=== PATIENT | female | born 1990 | race Caucasian/White ===

== ENCOUNTER 2020-08-19 16:35 | Emergency (ER) | payer MEDICAID, SELFPAY ==
[2020-08-19 16:36] VITALS: BP 123/73; PULSE 82; RESP 17; TEMP 36.7; O2SAT 100; BMI 21.2
[2020-08-19 17:08] VITALS: BP 123/73; PULSE 82; RESP 17; TEMP 36.7; O2SAT 100; BMI 21.2
[2020-08-19 17:16] VITALS: BP 123/73; PULSE 82; RESP 17; TEMP 36.7; O2SAT 100
--- NOTE | 2020-08-19 17:29 | HMH.EDUTC ---
[facility] [place] Disposition Clinical Impression: Encounter for laboratory testing for COVID-19 virus, Pain Disposition: Home, Self-Care Condition on Discharge: Good Instructions: Scoliosis-Adult, Preventing the Spread of Coronavirus Discharge Instructions Additional Instructions: *Monitor Temp, Over the counter Motrin or Tylenol as directed/as needed Tylenol every 4 hours and Motrin every 6 hours (as long as your family doctor has told you that you can take it) for fever or pain. and straight to ER if unable to lower temp less than 101.0 after medication given *Warm salt water gargles may help to soothe the throat *Throat Lozenges *Warm fluids like tea with honey may help to soothe the throat *Sleep elevated *Humidifier/Vaporizer You was tested for today for COVID19 your test result should be back within the next 48-72 hours, call back to the [facility] to see if your test results are back and the result You was given a handout with instructions for Self Quarantine and Self isolation for while you wait on test results and what to do if they are positive Follow up IMMEDIATELY for new or worsening symptoms or no Noticeable improvement over the next 48-72 hours. 911 for difficulty breathing or swallowing You was tested for today for COVID19 your test result should be back within the next 48-72 hours, call back to the [facility] to see if your test results are back and the result You was given a handout with instructions for Self Quarantine and Self isolation for while you wait on test results and what to do if they are positive Prescriptions: Naproxen [Naproxen 500mg tab] 500 mg PO BID PRN #6 tab PRN Reason: Moderate Pain Prescription Printed Referrals: PCP,No [Primary Care Provider] - As needed Forms: Work/School Release Medical Decision Making - Daniel Inquiry Pt receiving controlled substance: No Daniel was queried for this patient: No Vital Signs: 08/19/20 16:36 08/19/20 17:08 08/19/20 17:16 Temperature 98.0 F 98.0 F 98.0 F Temperature Source Oral Oral Pulse Rate 82 Pulse Rate [Left Radial] 82 82 Respiratory Rate 17 17 17 Blood Pressure 123/73 Blood Pressure [Right Arm] 123/73 123/73 Blood Pressure Mean [Right Arm] 89 89 Blood Pressure Source [Right Arm] Automatic Cuff Automatic Cuff Blood Pressure Position [Right Arm] Sitting Sitting 02 Sat by Pulse Oximetry 100 100 Oxygen Delivery Method Room Air Room Air Orders (Tests/Meds): ORDERS Category Date Time Status Covid-19 Nasal PCR Sendout [facility] 08/19/20 17:13 Received [facility] [place] HPI - General Stated complaint: Leg, back, wrist, neck pain Time Seen by Provider: 08/19/20 17:29 Mode of Arrival: Ambulatory Source of Information: Significant Other Limitations: No Limitations Description of Symptoms (Recalled from Triage Doc. by RN): Generalized pain HEENT Symptoms (Recalled from RN notes): No Resp Symptoms (Recalled from RN notes): No Skin Symptoms (Recalled from RN notes): No MS Symptoms (Recalled from RN notes): Yes Functional Status (Recalled from RN notes): WNL - History of Present Illness Provider Complaint: Patient states that she has been feeling achy all over, body aches, chills and mother recently from COVID States that she was concerned and wanted to get tested States that she looks up at work alot and has a history of scoliosis States that she also wanted to see if there was anything she could get to help with the pain - Related Data Previous Rx's Medication Instructions Recorded Naproxen [Naproxen 500mg tab] 500 mg PO BID PRN #6 tab 08/19/20 Allergies Allergy/AdvReac Type Severity Reaction Status Date / Time No Known Allergies Allergy Unverified 11/14/17 15:12 - Worker's Comp Is this a Worker's Comp case?: No Is this an [facility] Worker's Comp?: No Is this a [place] Worker's Comp?: No [facility] History - Hepatitis A Screen Drug use history?: No High risk sexual behaviors?: No History of sexually transmitted inf
[2020-08-21 14:07] LABS: Covid-19 Nasal PCR Sendout Lex NOT DETECTED
== END 2020-08-19 17:45 | disposition home or self-care (01) ==
PROVIDERS: Emergency Provider Nurse Practitioner
DX: M54.6 Pain in thoracic spine (principal); M54.2 Cervicalgia; Z20.828 Contact with and (suspected) exposure to other viral communicable diseases; F17.210 Nicotine dependence, cigarettes, uncomplicated; M41.9 Scoliosis, unspecified
CPT/HCPCS: 99201; U0004

== ENCOUNTER 2025-08-13 22:44 | Emergency (ER) | payer MEDICAID, SELFPAY ==
[2025-08-13 22:46] VITALS: BP 101/69; PULSE 86; RESP 20; TEMP 36.4; O2SAT 99; BMI 24.3
--- NOTE | 2025-08-13 22:49 | ECG_ITS ---
APPROVED REPORT Exam: Resting ECG HR:81 bpm ECG Measurements Heart Rate 81 AXES AK 158 P 60 QRSd 81 QRS 64 QT 360 T 67 QTc 398 Conclusion SINUS RHYTHM NORMAL ECG UNCONFIRMED REPORT Electronically signed by : NOMAN WAGGONER, 08/14/2025 06:36:43
--- NOTE | 2025-08-13 23:11 | ED_ITS ---
Discharge Plan Disposition Patient Disposition: Home, Self-Care Prescriptions Prescriptions: No Action naproxen 500 MG tablet 500 mg PO BID PRN (Reason: Moderate Pain) Qty: 6 0RF Referrals Follow up/Referrals: Provider,Referral, MD [Primary Care Provider, Medical] - See instructions Activity Restrictions/Add. Instructions Additional Instructions/Restrictions: Recommend taking Tylenol and ibuprofen as needed for pain. Please follow-up with your primary care provider. Please return to the emergency department if you develop any new or worsening symptoms or become concerned for your health. Clinical Impressions Clinical Impression: Atypical chest pain Stand Alone Forms Stand Alone Forms: Work/School Release Print Language Print Language: Amharic Discharge ED Provider: Brady Ibrahim Adult HPI General Chief complaint: Chest Pain Stated complaint: chest pain Time Seen by Provider: 08/13/25 23:11 Mode of Arrival: Ambulatory Source of Information: Patient Description of Symptoms (Recalled from ER Triage Doc. by RN): Pt presents to the ED with c/o chest pain that started yesterday around 1400. Pt was seen at a hospital in [place], but states they just gave her ibuprofen and sent her home. Pt states she noticed worsening pain this morning when she woke up. Pt denies any radiating pain, or any other symptoms at this time. History of Present Illness HPI narrative: 34-year-old female with nonsignificant medical history presents for left-sided chest pain. She reports it has been going on since yesterday. She was seen at an outside hospital where she had an EKG and blood work drawn, which were reportedly negative. Her pain has continued/worsened so that is why she presents here today. She has no history of blood clots, is not on any contraceptive medications, no recent travel or leg swelling. She reports a mildly productive cough. Reports it radiates to the left shoulder. Denies any cardiac history. She reports a little bit of left-sided upper abdominal pain, denies significant midline or right sided pain, has had cholecystectomy. Related Data Previous Rx's ?Medication ?Instructions ?Recorded naproxen 500 mg tablet 500 mg PO BID PRN Moderate P ain #6 08/19/20 tabs Allergies Allergy/AdvReac Type Severity Reaction Status Date / Time No Known Allergies Allergy Unverified 11/14/17 15:12 [facility] Disclaimer: The information contained in this section may have been updated after the patient was seen, as this information can be updated by other users. Social History Smoking Status: Current every day smoker tobacco type: cigarettes packs per day: 2 second hand exposure: No alcohol intake: current alcohol intake frequency: 3 or more drinks per day current occupational status: employed Travel in the last 8 weeks?: None caffeine: Yes ROS Obtained: Yes All systems reviewed & no additional complaints except as documented Physical Exam General General appearance: alert and in no apparent distress Head Head exam: atraumatic and normocephalic Eye Eye exam: Present normal appearance, PERRL and EOMI ENT ENT exam: Present normal oropharynx and normal external ear exam Neck Neck exam: Present normal inspection and full ROM Chest Chest inspection: Present normal inspection and symmetric chest wall rise; Absent tenderness Respiratory Respiratory exam: Present normal lung sounds bilaterally; Absent respiratory distress Cardiovascular Cardiovascular exam: Present regular rate and normal rhythm Abdominal Exam Abdominal exam: Present soft; Absent distention, tenderness or guarding Extremities Exam Extremities exam: Present normal inspection; Absent edema or joint swelling Back Exam Back exam: Present normal inspection; Absent tenderness Neurological Exam Neurological exam: Present alert and oriented X3; Absent motor sensory deficit Psychiatric Psychiatric exam: Present normal affect and normal mood Skin Skin exam: Present warm, dry and normal color Lymphatic Lymphatic Findings: no adenopathy Medical Decision Making Medical Records Medical records reviewed: Yes I reviewed the patient's medical records. Screening: Per USPSTF and CDC recommendations, given the prevalence of disease in our region, it is our hospital?s policy to screen for HIV and viral Hepatitis for all patients aged 18 and over and those with ongoing risk factors. Daniel Inquiry Pt receiving controlled substance: No Daniel was queried for this patient: No Vital Signs: 08/13/25 22:46 08/14/25 00:00 08/14/25 00:30 Temperature 97.5 F L Temperature Source Temporal Artery Scan Pulse Rate 80 80 Pulse Rate [Right] 86 Respiratory Rate 20 20 22 Blood Pressure 94/64 L 105/65 L Blood Pressure [Right Arm] 101/69 L Blood Pressure Mean [Right Arm] 79 Blood Pressure Source [Right Arm] Automatic Cuff Blood Pressure Position Blood Pressure Position [Right Arm] Sitting 02 Sat by Pulse Oximetry 99 97 98 Oxygen Delivery Method 08/14/25 00:39 08/14/25 01:04 Temperature 98.7 F Temperature Source Pulse Rate 80 112 H Pulse Rate [Right] Respiratory Rate 14 17 Blood Pressure 105/65 L 97/61 L Blood Pressure [Right Arm] Blood Pressure Mean [Right Arm] Blood Pressure Source [Right Arm] Blood Pressure Position Sitting Blood Pressure Position [Right Arm] 02 Sat by Pulse Oximetry 99 Oxygen Delivery Method Room Air Room Air Lab Data Lab results reviewed: Yes I reviewed the patient's lab results. Lab Results 08/13/25 22:57: WBC 9.8, RBC 4.40, Hgb 12.6, Hct 37.9, MCV 86.1, MCH 28.6, MCHC 33.2, RDW 14.0, Plt Count 303, MPV 10.5 H, Neut % (Auto) 48.1, Lymph % (Auto) 38.0, [place] % (Auto) 11.3 H, Eos % (Auto) 1.6, Baso % (Auto) 0.7, Neut # (Auto) 4.7, Lymph # (Auto) 3.7, [place] # (Auto) 1.1 H, Eos # (Auto) 0.2, Baso # (Auto) 0.1, Sodium 138, Potassium 3.9, Chloride 107, Carbon Dioxide 25, Anion Gap 9.9, BUN 5 L, Creatinine 0.70, Estimated Creat Clear 112, Estimated GFR 96, Est GFR ( Amer) 117, Glucose 81, Calcium 8.7, Total Bilirubin 0.4, AST 27, ALT 14, Alkaline Phosphatase 45, Troponin I < 0.01, Total Protein 7.0, Albumin 4.1, Globulin 2.9, Albumin/Globulin Ratio 1.4, Lipase 79, Serum HCG, Qual Negative 08/13/25 22:57 08/13/25 22:57 Orders (Tests/Meds): ED MEDICATIONS Discontinued Medications Generic Name Dose Route Start Last Admin Trade Name Freq PRN Reason Stop Dose Admin Acetaminophen 1,000 mg 08/13/25 23:27 08/13/25 23:35 Acetaminophen 500mg Tab PO 08/13/25 23:28 1,000 mg ONCE ONE Administration Belladonna Alkaloids 60 ml 08/13/25 23:27 08/13/25 23:35 Belladonna Alkaloids 60 Ml Ml PO 08/13/25 23:28 60 ml ONCE ONE Administration Ketorolac Tromethamine 30 mg 08/14/25 00:03 08/14/25 00:38 Ketorolac 30mg/Ml Vial IV 08/14/25 00:04 30 mg ONCE ONE Administration ORDERS Category Date Time Status CXR 2 view (NOT portable) [XR chest 2V] Stat Exams 08/13/25 23:24 Completed CBC w/Auto Diff [Complete Blood Count Auto Diff] Stat Lab 08/13/25 22:57 Completed CMP [Comprehensive Metabolic Panel] Stat Lab 08/13/25 22:57 Completed HCG Qualitative, Serum Stat Lab 08/13/25 22:57 Completed Lipase Stat Lab 08/13/25 22:57 Completed Troponin I Q3H Lab 08/13/25 22:57 Completed Troponin I Q3H Lab 08/14/25 02:30 Ordered ECG Data Tracing #1: I reviewed this ECG and interpreted as documented below: Sinus rhythm, no ST or T wave changes, no evidence of arrhythmia ECG initial impression date: 08/13/25 ECG initial impression time: 22:49 HEART Score History (anamnesis): Slightly suspicious ECG: Normal Age: <45 years Risk factors: No known risk factors Troponin: </= normal limit HEART Score: 0 Medical Decision Narrative: 34-year-old female without significant past medical history presents for 2 days of left-sided chest pain and minimally productive cough. History was obtained via interactive discussion with patient, family. On arrival, patient is [afebrile, hemodynamically stable, satting appropriately, alert, oriented x4, GCS 15], moving all extremities spontaneously. Full physical exam performed and significant for clear lungs bilaterally, Differential includes but is not limited to ACS, PE, pneumonia, pleurisy. Patient was given Tylenol Toradol GI cocktail for symptomatic management and correction of underlying abnormalities. Workup initiated including CBC CMP troponin EKG chest x-ray lipase. Patient is PERC negative and does not require D-dimer to rule out PE. On re-evaluation, patient [remains afebrile, HD stable.] Laboratory workup independently interpreted by me and significant for negative initial troponin. Repeat troponin was considered but administered given heart score of 0 and duration of pain. Other labs returned unremarkable. Imaging independently interpreted by me and significant for clear lungs bilaterally without focal opacity. See radiology read for full review of final results. Given patient history, exam and workup, patient's presentation most likely represents noncardiac chest pain. No evidence of pneumonia or other emergent pathology at this time. These findings were communicated patient and she was discharged in stable condition with return precautions. Procedures Risk/Benefits of Procedure(s) Were Explained: Yes Critical Care Critical Care Time Critical Care Time: No
--- NOTE | 2025-08-13 23:24 | XR_ITS ---
PROCEDURE INFORMATION: Exam: XR Chest Exam date and time: 08/13/2025 11:43 PM Age: 34 years old Clinical indication: Pain; Chest pressure; Additional info: Left cp, cough TECHNIQUE: Imaging protocol: Radiologic exam of the chest. Views: 2 views. Total images: 2 COMPARISON: No relevant prior studies available. FINDINGS: Tubes, catheters and devices: EKG leads are present. Lungs: Nonspecific hyperinflation. No consolidation. No pulmonary vascular congestion or edema. Pleural spaces: Unremarkable. No pleural effusion. No pneumothorax. Heart/Mediastinum: Unremarkable. No cardiomegaly. No mediastinal widening or hilar enlargement. Bones/joints: Unremarkable. Soft tissues: Breast attenuation artifact. IMPRESSION: 1. No radiographically acute cardiopulmonary process. 2. Nonspecific hyperinflation.
[2025-08-13 23:29] LABS: Hematocrit 37.9 % (37.0-47.0); Hemoglobin 12.6 g/dL (12.2-16.2); Immature Granulocytes % 0.3 %; Mean Corpuscular HGB Conc 33.2 g/dL (31.8-35.4); Mean Corpuscular Hemoglobin 28.6 pg (27.0-31.2); Mean Corpuscular Volume 86.1 fl (81-99); Nucleated Red Blood Cells % 0 %; Platelet Count 303 K/mm3 (142-424); Red Blood Count 4.40 M/mm3 (4.20-5.40); Red Cell Distribution Width-SD 44.7 fL; White Blood Count 9.8 K/mm3 (4.8-10.8)
[2025-08-13 23:35] LABS: Lipase 79 U/L (23-300)
[2025-08-13] MEDS: BELLADONNA ALKALOIDS 60 ML ML PO (23:35)
[2025-08-13] MEDS: ACETAMINOPHEN 500MG TAB 1000 MG PO (23:35)
[2025-08-13 23:37] LABS: Alanine Aminotransferase 14 U/L (12-78); Albumin Level 4.1 g/dl (3.5-5.0); Albumin/Globulin Ratio 1.4 (1.1-1.8); Alkaline Phosphatase 45 U/L (38-126); Anion Gap 9.9 mEq/L (5-15); Aspartate Amino Transferase 27 U/L (14-36); Bilirubin,Total 0.4 mg/dl (0.2-1.3); Blood Urea Nitrogen 5 mg/dl (7-17); Calcium 8.7 mg/dl (8.4-10.2); Carbon Dioxide 25 mmol/L (22.0-30.0); Chloride 107 mmol/L (98-107); Creatinine Clearance Estimated 112 mL/min (50-200); Creatinine,Serum 0.70 mg/dl (0.52-1.04); Estimated Glomerular Filt Rate 96 ml/min (>60); GFR (African American) 117 ML/MIN (>60); Globulin 2.9 g/dL (1.3-3.2); Glucose 81 mg/dl (74-100); Potassium 3.9 mmoL/L (3.5-5.1); Sodium 138 mmol/L (136-145); Total Protein,Serum 7.0 g/dl (6.3-8.2)
[2025-08-13 23:44] LABS: HCG Qualitative, Serum Negative (Negative)
[2025-08-13 23:53] LABS: Troponin I < 0.01 ng/ml (0.00-0.034)
[2025-08-14] VITALS: BP 94/64; PULSE 80; RESP 20; O2SAT 97
[2025-08-14 00:30] VITALS: BP 105/65; PULSE 80; RESP 22; O2SAT 98
[2025-08-14] MEDS: KETOROLAC 30MG/ML VIAL 30 MG IV (00:38)
[2025-08-14 00:39] VITALS: BP 105/65; PULSE 80; RESP 14; O2SAT 99
[2025-08-14 01:04] VITALS: BP 97/61; PULSE 112; RESP 17; TEMP 37.1; O2SAT 98
== END 2025-08-14 01:12 | disposition home or self-care (01) ==
PROVIDERS: Emergency Provider Emergency Medicine
DX: R07.89 Other chest pain (principal); F17.210 Nicotine dependence, cigarettes, uncomplicated
CPT/HCPCS: 71046; 80053; 83690; 84484; 84703; 85025; 93005; 96374; 99284; 99285; J1885